=== PATIENT | female | born 2000 | race Two or more races ===

== ENCOUNTER 2024-01-01 09:59 | Emergency (ER) | payer OTHER ==
[~2024-01-01] VITALS: Ht 160 cm; Wt 90.7 kg
[2024-01-01 10:13] VITALS: BP 104/72; TEMP 99.1
[2024-01-01] MEDS ORDERED: IBUPROFEN 600 MG TABLET ONE (11:46)
[2024-01-01] MEDS: IBUPROFEN 600 MG TABLET PO ONE (11:50)
[2024-01-01] MEDS ORDERED: IBUP-1955 PO (12:02)
[2024-01-01 12:15] VITALS: O2SAT 99
== END 2024-01-01 12:15 | disposition home or self-care (01) ==
LOC: ER 09:59
DX: S16.1XXA Strain of muscle, fascia and tendon at neck level, initial encounter (principal); S33.5XXA Sprain of ligaments of lumbar spine, initial encounter; S09.90XA Unspecified injury of head, initial encounter; V32.5XXA Driver of three-wheeled motor vehicle injured in collision with two- or three-wheeled motor vehicle in traffic accident, initial encounter; Y93.89 Activity, other specified; Y92.89 Other specified places as the place of occurrence of the external cause; Y99.8 Other external cause status
CPT/HCPCS: 72050-TC; 72110-TC